=== PATIENT | male | born 1990 | race Caucasian/White ===

== ENCOUNTER 2023-04-18 21:47 | Emergency (ER) | payer SELFPAY ==
[~2023-04-18] VITALS: Ht 186 cm; Wt 180.0 kg
--- NOTE | 2023-04-18 22:17 | ED General ---
General Chief Complaint: Dizziness/Syncope Stated Complaint: LIGHT HEADED/DIZZINESS Nursing Triage Note: PT AMB TO ED BY POV WITH C/O LIGHTHEADEDNESS X 3-4 DAYS. PT REPORTS HE QUIT TAKING MAGNESIUM 2 DAYS AGO AFTER TAKING IT FOR 6+ MONTHS AND IS CONCERNED HIS SYMPTOMS COULD BE RELATED TO THAT. DENIES N/V, URINARY SX, SOB, CP, OR ANY OTHER SX AT THIS TIME. Source of Information: Patient Exam Limitations: No Limitations History of Present Illness Date Seen by Provider: Apr 18, 2023 Time Seen by Provider: 22:05 Initial Comments 32-year-old male presents the emergency department today for dizziness, lightheadedness. He initially status symptoms for 3 to 4 days however he tells me he has felt not right since he started taking magnesium about a year and a half ago. He feels rundown. He stopped taking it about 2 days ago and since then has had lightheadedness. No chest pain or shortness of breath. He initially started taking magnesium for urinary symptoms and felt like it helped so he continued it. Since he stopped taking magnesium he does overall feel little bit better but worries about the lightheadedness. No vertigo. No nausea or vomiting. All other systems reviewed and negative except documented per HPI. Voice recognition software was used to help create this chart Allergies and Home Medications Allergies Coded Allergies: No Known Drug Allergies (Unverified , 04/18/23) Patient Home Medication List Home Medication List Reviewed: Yes Review of Systems Review of Systems Constitutional: see HPI Past Oarlckr-Dojzkg-Nhu[place]u Hx Patient Social History Tobacco Use?: No Use of E-Cig and/or Vaping dev: No Substance use?: No Alcohol Use?: No Physical Exam Vital Signs Vital Signs - First Documented 04/18/23 22:02 Temp 36.6 Pulse 112 Resp 14 B/P (MAP) 167/108 (127) Pulse Ox 97 O2 Delivery Room Air Capillary Refill : Less Than 3 Seconds Height, Weight, BMI Height: '" Weight: lbs. oz. kg; 52.00 BMI Method: General Appearance: No Apparent Distress, WD/WN HEENT: Normal ENT Inspection, Pharynx Normal Neck: Full Range of Motion, Normal Inspection, Non Tender, Supple Respiratory: Chest Non Tender, Lungs Clear, Normal Breath Sounds, No Accessory Muscle Use, No Respiratory Distress Cardiovascular: No Murmur, Normal Peripheral Pulses, Tachycardia Gastrointestinal: Normal Bowel Sounds, No Organomegaly, No Pulsatile Mass, Non Tender, Soft Extremity: Normal Capillary Refill, Normal Inspection, Normal Range of Motion, Non Tender, No Calf Tenderness, No Pedal Edema Neurologic/Psychiatric: Alert, Oriented x3, No Motor/Sensory Deficits, Normal Mood/Affect, 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 Normal intervals. Normal axis. No ST or T wave abnormalities. No ectopy. No STEMI. Departure Communication (Admissions) Patient is hemodynamically stable. EKG shows sinus tachycardia. His symptoms have started to improve slightly since stopping taking magnesium. I believe symptoms are likely related to overuse of this. We will go ahead and stop that medicine and ask him to follow-up with his primary doctor for continued monitoring. His vital signs are stable. His initial heart rate is around 90. When walking to the room it bounces up to 120. He states he has significant anxiety and has been worried about this for some time which is causing him to have an elevated heart rate. This is common for him. There is no evidence for an infectious source or other emergent medical condition at this time. Impression Primary Impression: Medication reaction Qualified Codes: T50.905A - Adverse effect of unspecified drugs, medicaments and biological substances, initial encounter Disposition: HOME, SELF-CARE Condition: Stable Departure-Patient Inst. Referrals: JUANITA BRADY APRN (PCP/Family) Primary Care Physician Add. Discharge Instructions: Continue cessation of magnesium. Increase your fluids at home and rest as needed. Follow-up with your primary doctor for any nonemergent needs. Return to the emergency department for any severe concerns. All discharge instructions reviewed with patient and/or family. Voiced understanding. DANNA HSU DO Apr 18, 2023 22:17
[2023-04-18 22:36] VITALS: BP 161/94
== END 2023-04-18 22:36 | disposition home or self-care (01) ==
LOC: ER 21:51
DX: R42 Dizziness and giddiness (principal); R00.0 Tachycardia, unspecified; T50.995A Adverse effect of other drugs, medicaments and biological substances, initial encounter; F41.9 Anxiety disorder, unspecified
CPT/HCPCS: 93005